=== PATIENT | male | born 2000 | race Caucasian/White ===

== ENCOUNTER 2024-08-21 21:58 | Emergency (ER) | payer SELFPAY ==
[2024-08-21 22:01] VITALS: BP 132/88
[2024-08-21 22:45] VITALS: BP 126/70; BMI 33.0
--- NOTE | 2024-08-21 23:49 | ED.GENMED ---
History of Present Illness
<Christiane Duong PA-C - Last Filed: 08/22/24 02:58>
General
Chief Complaint: Skin Problem
Source: patient
Exam Limitations: none
Time Seen by Provider: 08/21/24 23:48
Nursing documentation reviewed up to this point in time: agreed with
History of Present Illness
History of Present Illness:
24-year-old male with past medical history of insulin-dependent diabetes presents emergency department today with concerns of a painful ingrown toe nail noted to his right great toe for the past 3 weeks. Patient reports that he originally presented
to urgent care and he was started on a course of doxycycline. Patient reports that he was on this antibiotic for 10 days. Patient reports that he did not note any improvement to the area after taking the antibiotic. Patient reports that it is
painful to walk. He denies any fevers or chills. Denies any spreading of the redness of the foot or up the leg. Patient reports that he currently does not have insurance and has never followed with a electric mule driver before and has never gotten
periodic foot exams with his history of diabetes.
Past History
<Christiane Duong PA-C - Last Filed: 08/22/24 02:58>
Past History
ED Past Medical History: Other (Previous ear tubes)
Social History
Tobacco: Vaping
Alcohol: None
Drug: Marijuana
Family History
Family History: Diabetes
Review of Systems
<Christiane Duong PA-C - Last Filed: 08/22/24 02:58>
Review of Systems
All Other Systems: ROS reviewed and negative except as documented in HPI and ROS
Phy Exam
<Christiane Duong PA-C - Last Filed: 08/22/24 02:58>
Physical Exam
Physical Exam:
General: Patient is well appearing and in no acute distress; non-toxic
Skin: Swelling and erythema noted to later aspect of right great toe with imbedding of toe nail with tenderness
Head: Normocephalic, atraumatic
Eyes: Sclera non-icteric. EOMs intact.
Cardiac: Regular rate
Peripheral Vascular: No lower extremity swelling or edema, 2+ DP and PT pulses on the right
Pulm: Normal respiratory effort
Musculoskeletal: No bony tenderness to palpation of the right foot
Neuro: CN II-XII intact, no focal neurologic deficits.
Psychiatric: Appropriate mood and affect.
Sepsis
<Christiane Duong PA-C - Last Filed: 08/22/24 02:58>
Sepsis Screening
Sepsis Assessment: Sepsis Ruled Out
Sepsis Screen
Sepsis Screen: Sepsis Ruled Out
Date: 08/22/24
Time: 02:58
Course
<Christiane Duong PA-C - Last Filed: 08/22/24 02:58>
Orders/Labs/Results
Orders:
Orders
08/21/24 23:55
Ibuprofen [Motrin] 600 mg PO NOW STA
08/22/24 00:02
Bedside Glucose- Treatment ONCE
08/22/24 00:11
Complete Blood Count/With Diff Urgent
Comprehensive Metabolic Panel Urgent
Abnormal Lab Results
08/22/24 08/22/24
00:11 00:28
Abs Immat Gran (auto) 0.1 H 10^3/uL
(0-0.05)
Absolute Monos (auto) 0.7 H 10^3/uL
(0.1-0.6)
Chloride 108 H mmol/L
(98-107)
BUN 23 H mg/dl
(9-20)
Glucose 258 H mg/dl
(70-99)
POC Glucose 229 H mg/dl
(70-99)
08/22/24 00:11
08/22/24 00:11
Vital Signs
Initial and Last Documented VS:
Initial Vital Signs
Temp Pulse Resp BP Pulse Ox
97.6 F 104 20 132/88 98
08/21/24 22:01 08/21/24 22:01 08/21/24 22:01 08/21/24 22:01 08/21/24 22:01
Last Documented Vital Signs
Temp Pulse Resp BP Pulse Ox
97.6 F 79 18 132/91 100
08/21/24 22:01 08/22/24 02:22 08/22/24 02:22 08/22/24 02:22 08/22/24 02:22
Rosemarielt;Ponce Hope, DO - Last Filed: 08/22/24 02:29>
Orders/Labs/Results
Orders:
Orders
08/21/24 23:55
Ibuprofen [Motrin] 600 mg PO NOW STA
08/22/24 00:02
Bedside Glucose- Treatment ONCE
08/22/24 00:11
Complete Blood Count/With Diff Urgent
Comprehensive Metabolic Panel Urgent
Abnormal Lab Results
08/22/24 08/22/24
00:11 00:28
Abs Immat Gran (auto) 0.1 H 10^3/uL
(0-0.05)
Absolute Monos (auto) 0.7 H 10^3/uL
(0.1-0.6)
Chloride 108 H mmol/L
(98-107)
BUN 23 H mg/dl
(9-20)
Glucose 258 H mg/dl
(70-99)
POC Glucose 229 H mg/dl
(70-99)
08/22/24 00:11
08/22/24 00:11
Vital Signs
Initial and Last Documented VS:
Initial Vital Signs
Temp Pulse Resp BP Pulse Ox
97.6 F 104 20 132/88 98
08/21/24 22:01 08/21/24 22:01 08/21/24 22:01 08/21/24 22:01 08/21/24 22:01
Last Documented Vital Signs
Temp Pulse Resp BP Pulse Ox
97.6 F 79 18 132/91 100
08/21/24 22:01 08/22/24 02:22 08/22/24 02:22 08/22/24 02:22 08/22/24 02:22
Procedures
<Christiane Duong PA-C - Last Filed: 08/22/24 02:58>
Digital Block
Location of injection for digital block: base of digit
Indiction for Digital Block: other (ingrown tail removal)
Was sensory exam normal prior to exam?: intack pin prick
Type of anesthesia: other (1% lidocaine no epi)
Complications: none- good anesthesia
Nail Trepanation/Felon
Method of Drainage: other (see below )
Sterile dressing applied: Yes
Additional information:
Great toe anesthetized with digital block. Toe soaked and cleaned in diluted hydrogen peroxide solution. 11 blade used to undermine skin later to nail bed. Scissors used to remove imbedded part of nail. Area debrided. Pressure dressing placed.
<SID Partida Last Filed: 08/22/24 02:58>
MDM/Problems Addressed
MDM/Problems Addressed:
24-year-old male with past medical history of insulin-dependent diabetes presents emergency department today with concerns of a painful ingrown toe nail noted to his right great toe for the past 3 weeks. He was on doxycycline for 10 days with no
improvement. On exam, swelling and erythema noted to later aspect of right great toe with imbedding of toe nail with tenderness. Procedure completed to removal in grown nail. Patient started on Bactrim. Patient stable for outpatient podiatry follow
up.
<SID Partida Last Filed: 08/22/24 02:58>
*Critical Care Note
Total Time (30-74mins, 75-104mins- exclusive of procedures): Not Applicable
ED Attending Note
<Christiane Duong PA-C - Last Filed: 08/22/24 02:58>
-
Portions of this chart may have been created with voice recognition software.� Occasional wrong word or��sound alike� substitutions may have occurred due to the inherent limitations of voice recognition software.
<Ponce Hope DO - Last Filed: 08/22/24 02:29>
ED Attending Note
Patient seen and examined by attending physician: Yes
ED Attending Note:
24-year-old male diabetic with an ingrown toenail. Tried a course of antibiotics. Still infected appearing. Patient was seen in conjunction with the PA. I have reviewed and agree with her history and my independent physical exam patient is awake
alert and oriented x 3. Great toe is infected. It is ingrown. Plan we numbed the toe using a digital block and lidocaine without epinephrine. We thoroughly cleaned the wound. We unroofed the fluid accumulation which appeared to be bloody
without any evidence of pus. We were able to cut the nail down to give more room for normal growth. Patient tolerated procedure well with without immediate adverse effects. Patient started on new antibiotics. Patient will follow-up podiatry at
his previously scheduled appointment for Tuesday.
Discharge Plan
Departure
Patient Disposition: Home (Routine Discharge)
Date of Disposition: 08/22/24
Time of Disposition: 02:16
Patient with high blood pressure during this ER visit?: Yes
Condition: Good
Discharge Problem:
Ingrown toenail with infection
Instructions: Wound Care (DC), Ingrown toenail - ED discharge instructions, BLOOD PRESSURE
Prescriptions:
New
sulfamethoxazole-trimethoprim [Bactrim DS] 800-160 mg tablet
1 tab PO BID 7 Days Qty: 14 0RF
No Action
doxycycline monohydrate 100 mg tablet
100 mg PO BID Qty: 14 0RF
metformin 500 mg tablet
500 mg PO BID Qty: 60 0RF
Referrals:
NONE,* [Family Provider] -
Bart Carvajal MD [Active] - Call in 1-3 days for appt
Activity Restrictions/Additional Instructions:
Please follow up with the electric mule driver you called. If you cannot get an appointment, please call the attached number to schedule an appointment with Dr. Carvajal's office.
Please soak wound in warm water soaks and please use hot compresses over the wound 3 times daily.
Bactrim has been sent to your pharmacy. Please take 1 tablet twice daily for 7 days.
Please return to the emergency department should you develop surrounding redness to the wound spreading up the foot or up the leg, fevers or chills, nausea or vomiting, or any other signs or symptoms worrisome to you.
Interventions
Interventions:
*Risk Screen - Suicide Last Done: 08/21/24 22:01
*General Assessment Last Done: 08/21/24 22:45
*Neglect/Abuse Screening Last Done: 08/21/24 22:01
*ED- Fall Risk Assessment Last Done: 08/21/24 22:45
*ED COVID-19 Vaccine History Last Done: 08/21/24 22:45
*Nursing Disposition Last Done: 08/22/24 02:22
ED-Skin Assessment Last Done: 08/21/24 22:45
Discharge Date and Time
Discharge Date/Time: 08/22/24 02:24
Print Language: MAORI
[2024-08-22] MEDS: MOTRIN 600 MG PO (00:03)
[2024-08-22 00:30] LABS: Glucose - Point of Care 229 mg/dl (70-99)
[2024-08-22 00:36] LABS: % Basophils 0.5 % (0-2); % Eosinophils 4.8 % (0-6); % Immature Granulocytes 0.5 % (0-0.5); % Monocytes 6.4 % (1.7-9.3); % Neutrophils 58.8 % (42.2-75.2); Absolute Basophils 0.1 10^3/uL (0-0.2); Absolute Eosinophils 0.5 10^3/uL (0-0.7); Absolute Immature Granulocytes 0.1 10^3/uL (0-0.05); Absolute Monocytes 0.7 10^3/uL (0.1-0.6); Mean Corp Hgb Conc. 34.1 g/dL (33.0-37.0); Mean Corpuscular Hgb 28.3 pg (27.0-31.0); Mean Corpuscular Volume 82.8 fL (80.0-94.0); Mean Platelet Volume 9.2 fL (7.4-10.4); Nucleated Red Blood Cells % 0 % (-); Platelet Count 288 10^3/uL (130-400); Red Blood Cell Count 4.95 10^6/uL (4.70-6.10); Red Cell Dist. Width 12.6 % (11.5-14.5); White Blood Cell Count 10.2 10^3/uL (4.8-10.8)
[2024-08-22 00:40] LABS: ALT (SGPT) 33 U/L (0-50); AST (SGOT) 22 U/L (17-59); Albumin 4.4 g/dl (3.5-5.0); Alkaline Phosphatase 55 U/L (38-126); Blood Urea Nitrogen 23 mg/dl (9-20); Calcium 9.6 mg/dl (8.4-10.2); Carbon Dioxide 23 mmol/L (22-30); Chloride 108 mmol/L (98-107); Estimated Creatinine Clearance > 125 ml/min; Glucose 258 mg/dl (70-99); Potassium 4.2 mmol/L (3.5-5.1); Sodium 139 mmol/L (135-145); Total Bilirubin 0.6 mg/dl (0.2-1.3); eGFR > 60.00
[2024-08-22 02:22] VITALS: BP 132/91
== END 2024-08-22 02:24 | disposition home or self-care (01) ==
LOC: EMR 21:58
PROVIDERS: Physician Assistant; EMERGENCY PHYSICIAN Student in an Organized Health Care Education/Training Program
DX: L60.0 Ingrowing nail (principal); E11.9 Type 2 diabetes mellitus without complications; F17.290 Nicotine dependence, other tobacco product, uncomplicated; Z79.4 Long term (current) use of insulin; Z59.71 Insufficient health insurance coverage
CPT/HCPCS: 17999; 99283; 80053; 82962; 85025